=== PATIENT | female | born 1950 | race American Indian/Alaskan Native ===

== ENCOUNTER 2017-01-20 12:30 | Outpatient (CLI) | payer MEDICARE, MEDICAID ==
--- NOTE | 2017-01-20 15:15 | Mammography Report ---
Bilateral mammogram: Compared to . CAD study utilized. Findings: Predominance of adipose tissue bilaterally. No mass or microcalcification. Benign axillary nodes. Focal 4 mm new asymmetry upper left breast. Impression: Focal ill-defined circumscribed new asymmetry upper anterior left breast. Recommend spot mag and sonographic examination. BI-RADS CATEGORY: 0 = Needs additional imaging evaluation ACR BI-RADS MAMMOGRAPHIC CODES: 0 = Needs additional imaging evaluation; 1 = Negative; 2 = Benign; 3 = Probably benign; 4 = Suspicious; 5 = Malignant; 6 = Known biopsy-proven malignancy COMMENT: 1. Dense breast tissue, i.e., adenosis, fibrocystic changes, etc., may obscure an underlying neoplasm. 2. Approximately 10% of cancers are not detected with mammography. 3. A negative mammography report should not delay biopsy if a clinically suspicious mass is present. COMMENT: [facility]
--- NOTE | 2017-01-21 08:07 | Mammography Report ---
BONE DENSITY STUDY: DEFINITIONS: BMD = Bone Mineral Density T-score = BMD related to mean peak bone mass of young adult (mean expressed in Standard Deviation) Z-score = Age matched BMD expressed in SD World Health Organization (WHO) Diagnostic Criteria Normal T-score > -1 SD Osteopenia T-score between -1 and -2.4 SD Osteoporosis T-score -2.5 SD or below FINDINGS: The weighted average BMD of lumbar spine L1-L4 is 1.074 with a T-score of 0.5. The weighted average BMD of hip is 1.036 with a T-score of 0.8. IMPRESSION: The patient's T-score is diagnostic for normal bone density and low relative risk for fracture. NOTE: BMD is not the only risk factor for fracture; also consider factors such as the patient's age, risk of falling, previous osteoporotic fracture, family history of osteoporotic fractures, current smoker, and low body weight. De La Garza's triangle is a region of interest in femur, predominantly of trabecular bone. It is not a true anatomic site, and ISCD does not recommend its use clinically.
== END 2017-01-20 12:31 | disposition home or self-care (01) ==
LOC: MAMMO 12:30
PROVIDERS: ATTEND Specialist
DX: Z12.31 Encounter for screening mammogram for malignant neoplasm of breast (principal); Z13.820 Encounter for screening for osteoporosis; E21.2 Other hyperparathyroidism
CPT/HCPCS: 77080; G0202; 77067

== ENCOUNTER 2017-02-13 08:17 | Outpatient (CLI) | payer MEDICARE ==
--- NOTE | 2017-02-13 09:36 | Mammography Report ---
Left mammogram and left breast ultrasound: Additional compression imaging of the breast in the lateral view is performed based on asymmetry seen only in one projection on recent screening exam. It is of note that the patient had prior injury with surgery in this location as a child. The additional compression images are not substantially different than the standard imaging seen on prior study in 2015. Ultrasound of the upper outer breast however was performed also demonstrating essentially unremarkable findings except for a 3 mm anechoic teardrop-shaped area surrounded by an echogenic rim in the 12:00 location. Impression: The mammographic and ultrasound findings are not suspicious for malignancy and most likely explained by prior wrist injury. Recommendation: Annual mammogram followup. BI-RADS CATEGORY: 2 = Benign ACR BI-RADS MAMMOGRAPHIC CODES: 0 = Needs additional imaging evaluation; 1 = Negative; 2 = Benign; 3 = Probably benign; 4 = Suspicious; 5 = Malignant; 6 = Known biopsy-proven malignancy COMMENT: 1. Dense breast tissue, i.e., adenosis, fibrocystic changes, etc., may obscure an underlying neoplasm. 2. Approximately 10% of cancers are not detected with mammography. 3. A negative mammography report should not delay biopsy if a clinically suspicious mass is present.
== END 2017-02-13 08:18 | disposition home or self-care (01) ==
LOC: MAMMO 08:17
PROVIDERS: ATTEND Physician Assistant Medical
DX: R92.8 Other abnormal and inconclusive findings on diagnostic imaging of breast (principal); I10 Essential (primary) hypertension; J44.9 Chronic obstructive pulmonary disease, unspecified
CPT/HCPCS: 76642; G0206

== ENCOUNTER 2017-06-02 07:40 | Day surgery (SDC) | payer MEDICARE ==
[2017-06-02] MEDS ORDERED: NACL 0.9% 1000 ML 1,000 ML ONE (08:27)
[2017-06-02] MEDS ORDERED: NACL 0.9% 1000 ML 1,000 ML IV SCH (09:00)
--- NOTE | 2017-06-02 09:17 | Anesthesia Consultation ---
Anesthesia Consult and Med Hx Date of service: 06/02/17 - Airway Anesthetic Teeth Evaluation: Good ROM Head & Neck: Adequate Mental/Hyoid Distance: Adequate Mallampati Class: Class II Intubation Access Assessment: Probably Good - Pulmonary Exam CTA: Yes - Cardiac Exam Cardiac Exam: RRR - Pre-Operative Health Status ASA Pre-Surgery Classification: ASA3 Proposed Anesthetic Plan: MAC - Pre-Anesthesia Comment Pre-Anesthesia Comments: Pt stated she was being resusitated during gallbladder surgery - Pulmonary Hx Smoking: No COPD: Yes (MILD) Hx Sleep Apnea: (HIGH RISK) - Cardiovascular System Hx Hypertension: Yes Hx Heart Attack/AMI: No - Central Nervous System Hx Neuromuscular Disorder: Yes (castanon palsy in ) Hx Seizures: No CVA: No Hx Psychiatric Problems: Yes (anxiety) - Gastrointestinal Hx Ulcer: Yes (peptic 5yrs ago) Hx Gastroesophageal Reflux Disease: Yes - Endocrine Hx Renal Disease: No (kidney function better after switching to a diff BP med) Hx Hypothyroidism: Yes (hypo and hyper) Hx Hyperthyroidism: Yes - Hematic Hx Anemia: No (RESOLVED) - Other Systems Hx Cancer: No - Additional Comments Anesthesia Medical History Comments: NAC
--- NOTE | 2017-06-02 09:18 | Anesthesia Day of Surgery ---
Anesthesia Day of Surgery - Day of Surgery Patient Examined: Yes Patient H&P Reviewed: Yes Patient is NPO: Yes
[2017-06-02] MEDS ORDERED: DIPRIVAN 10 MG/ML IV ONE (09:22)
--- NOTE | 2017-06-02 09:22 | Short Stay Summary ---
Short Stay Documentation Date of service: 06/02/17 Narrative H&P: 66 year old for EGD to evaluate nausea/vomiting. History peptic ulcer. - History Principal diagnosis: nausea, vomiting H&P: obtained from office - Allergies and Medications Current Medications: Allergies No Known Allergies Allergy (Verified 01/13/15 08:30) Home Medications Medication Instructions Recorded Confirmed Last Taken Type Famotidine [Pepcid] 20 mg PO DAILY #30 tablet 06/05/14 06/02/17 06/01/17 21:00 Rx cloNIDine [Catapres] 0.2 mg PO QHS #30 tablet 06/05/14 06/02/17 06/01/17 21:00 Rx Promethazine [Phenergan TAB] 25 mg PO Q6H PRN #20 tablet 08/05/14 04/29/1506/01 09:00 Rx Hydrochlorothiazide [HCTZ] 25 mg PO QDAY 04/06/15 06/02/17 04/28/15 History Lisinopril [Zestril TAB] 40 mg PO QDAY 04/06/15 04/29/15 04/28/15 History ALBUTEROL Inhaler [ProAir HFA 2 puff IH QID PRN #1 inhalation 04/29/15 06/02/17 Unknown Rx Inhaler] Prednisone [predniSONE 5 mg (6-Day 5 mg PO .TAPER #1 tab.ds.pk 04/29/15 Unknown Rx Pack, 21 Tabs)] oxyCODONE /ACETAMINOPHEN [Percocet 1 tab PO Q6HR PRN #10 tablet 04/29/1506/01/17 21:00 Rx 5/325 mg] Baclofen 1 tab PO 05/30/17 Unknown History DULoxetine 1 cap PO BID 05/30/17 06/02/17 06/01/17 21:00 History Dicyclomine 1 tab PO BID 05/30/17 06/02/17 06/01/17 21:00 History Duexis 800-26.6 mg Tablet 05/30/17 Unknown History Gabapentin 1 tab PO BID 05/30/17 06/02/17 06/01/17 History Levothyroxine 1 tab PO DAILY 05/30/17 06/02/17 06/02/17 06:00 History Nortriptyline 1 cap PO 05/30/17 06/01/17 21:00 History Ondansetron 1 tab PO DAILY 05/30/17 06/02/17 06/01/17 21:00 History Simvastatin 1 tab PO 05/30/17 Unknown History Simvastatin 1 tab PO DAILY 05/30/17 06/02/17 06/01/17 21:00 History amLODIPine 1 tab PO DAILY 05/30/17 06/02/17 06/02/17 06:00 History metFORMIN 1 tab PO BID 05/30/17 06/02/17 06/01/17 21:00 History Cyclobenzaprine HCl [Flexeril 5 MG 5 mg PO BID PRN 06/02/17 06/02/17 06/01/17 21 :00 History TAB] Active Medications Sodium Chloride (Nacl 0.9% 1000 Ml) 1,000 mls @ 50 mls/hr IV 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 Follow up with: STEVEN LIU MD [Primary Care Provider] - 7 Days
[2017-06-02] MEDS ORDERED: WATER FOR IRRIG STERILE IR ONE (10:04)
--- NOTE | 2017-06-02 10:18 | Operative Report ---
Operative Report Operative Report: Date of procedure: 04/02/2017 Preprocedure diagnosis: Nausea and vomiting, gastroesophageal reflux disease Post procedure diagnosis: Mild gastritis, hiatal hernia Procedure name(s): Esophagogastroduodenoscopy with biopsy Surgeon: Eduardo Lamas MD Anesthesia: Monitored anesthesia care EBL: None Procedure: The indications, techniques, potential complications and alternatives , had been discussed in full detail prior to the date of the exam, and once again on the day of the exam. Questions were encouraged and answered, and consent was thereby obtained. The patient was placed in the left lateral decubitus position, and was medicated by anesthesia services. See the anesthesia records for details. The tip of a [employer] video panendoscope was passed without difficulty through the pharynx and into the esophagus which appeared to have a patulous EG junction , but otherwise appeared normal throughout its entire length. A 1.5-2 cm hiatal hernia was traversed as the instrument was advanced into the stomach. No Wolf lesions were noted. Once in the stomach, air was insufflated. The stomach distended well, gastric folds were normal in thickness and contour, the pylorus was patent and there was no retained content. There was streaky erythema with one or 2 erosions involving the distal body and antrum. No patricia ulceration. No pathology was seen in the duodenal bulb or in the post bulbar duodenum to below the level of the ampulla. Retroflexion in the stomach disclosed no additional pathology involving the lesser gastric curvature, fundus or cardia. Antral biopsies were obtained for rapid Helicobacter pylori testing. No bleeding was precipitated. The endoscope was then withdrawn, with repeat examination of the stomach, esophagogastric junction and esophagus. There were no additional findings. The procedure was very well tolerated. Postprocedure she was monitored in the recovery area of the GI lab to ensure stability prior to her release. See the outpatient record for details regarding instructions to patient, medications and plans for follow-up. Final diagnosis: 1. Mild, nonerosive antral gastritis 2. Hiatal hernia 3. Patulous esophagogastric junction Eduardo Lamas M.D. Dictated 06/02/2017 at 10:16 AM
[2017-06-02 10:42] VITALS: BP 119/73
--- NOTE | 2017-06-02 11:02 | Post Anesthesia Evaluation ---
- Post Anesthesia Evaluation Patient Participated: Yes Airway Patent: Yes Stable Respiratory Function: Yes Nausea/Vomiting: No Temp > 96.8F: Yes Pain Manageable: Yes Adequeate Hydration: Yes Anesthesia Complications: No Block Receding Appropriately: Not Applicable Patient on Ventilator: No
== END 2017-06-02 07:41 | disposition home or self-care (01) ==
LOC: GIO 07:40
PROVIDERS: ATTEND Internal Medicine Gastroenterology
DX: K29.50 Unspecified chronic gastritis without bleeding (principal); K44.9 Diaphragmatic hernia without obstruction or gangrene; K21.9 Gastro-esophageal reflux disease without esophagitis; J44.9 Chronic obstructive pulmonary disease, unspecified; I10 Essential (primary) hypertension; F41.9 Anxiety disorder, unspecified; E03.9 Hypothyroidism, unspecified; E05.90 Thyrotoxicosis, unspecified without thyrotoxic crisis or storm; Z87.11 Personal history of peptic ulcer disease
CPT/HCPCS: 43239; 82962; 86677; J2704; J7030

== ENCOUNTER 2017-10-10 23:40 | Emergency (ER) | payer MEDICARE ==
[2017-10-11 00:30] LABS: Basophils % (Auto) 0.3 % (0.0-1.8); Eosinophils % (Auto) 0.3 % (0.0-4.3); Hematocrit 41.2 % (30.3-42.9); Hemoglobin 13.6 gm/dl (10.1-14.3); Lymphocytes # (Auto) 0.4 K/mm3 (1.2-5.4); Lymphocytes % (Auto) 9.2 % (13.4-35.0); Mean Corpuscular HGB Conc 33 % (30-34); Mean Corpuscular Hemoglobin 29 pg (28-32); Mean Corpuscular Volume 87 fl (79-97); Monocytes # (Auto) 0.1 K/mm3 (0.0-0.8); Monocytes % (Auto) 1.3 % (0.0-7.3); Platelet Count 219 K/mm3 (140-440); Red Blood Count 4.72 M/mm3 (3.65-5.03); Red Cell Distribution Width 14.3 % (13.2-15.2)
[2017-10-11 00:42] LABS: BUN/Creatinine Ratio 22; Blood Urea Nitrogen 22 mg/dL (7-17); Calcium 11.2 mg/dL (8.4-10.2); Hemolysis Index 97
[2017-10-11] MEDS ORDERED: TORADOL IM ONE (01:12)
[2017-10-11] MEDS ORDERED: ZOFRAN ODT PO ONE (01:12)
[2017-10-11] MEDS ORDERED: PERCOCET 5/325 PO ONE (01:12)
--- NOTE | 2017-10-11 02:02 | Cat Scan Report ---
FINAL REPORT PROCEDURE: CT HEAD/BRAIN WO CON TECHNIQUE: Computerized tomography of the head was performed without contrast material. HISTORY: headache COMPARISON: No prior studies are available for comparison. FINDINGS: Skull and scalp: There is right frontal scalp swelling. There is no skull fracture.. Paranasal sinuses: Normal. Ventricles and subarachnoid spaces: Normal. Cerebrum: There is a rounded density in the left temporal lobe medially measuring 1 centimeter which could be a small hemorrhagic contusion. There is no epidural or subdural hematoma. There is no edema, mass effect or midline shift.. Cerebellum and brainstem: No evidence of hemorrhage, acute infarction or mass. Vasculature: Normal. Comments: None. IMPRESSION: There is right frontal scalp swelling. There is no skull fracture.. There is a rounded density in the left temporal lobe medially measuring 1 centimeter which could be a small hemorrhagic contusion. There is no epidural or subdural hematoma. There is no edema, mass effect or midline shift.. Dr. Worthington was notified by telephone at 12:57 a.m. central time.
--- NOTE | 2017-10-11 02:05 | Emergency Department Report ---
ED Head Trauma HPI - General Chief complaint: Head Injury Stated complaint: HEAD INJURY Time Seen by Provider: 10/11/17 00:55 Source: patient Mode of arrival: Ambulatory Limitations: No Limitations - History of Present Illness Initial comments: 67-year-old female with a past medical history COPD, diabetes, arthritis, hypertension, thyroid disease, and fibromyalgia presents to hospital complaining of headache status post fall with LOC. Patient was playing with her boyfriend and fell striking her right forehead against a wooden table. Positive syncope. Patient complains of a 10/10 right frontal headache radiating across her forehead. Pain is constant. Forehead tender to touch. No alleviating factors reported. Patient complains of nausea without vomiting, blurred vision, neck pain, focal weakness, or numbness. Patient denies taking blood tenderness including aspirin or Plavix. - Related Data Home Medications Medication Instructions Recorded Confirmed Last Taken Hydrochlorothiazide [HCTZ] 25 mg PO QDAY 04/06/15 06/02/17 04/28/15 Baclofen 1 tab PO BID 05/30/17 06/02/17 06/01/17 21:00 DULoxetine 1 cap PO BID 05/30/17 06/02/17 06/01/17 21:00 Dicyclomine 1 tab PO BID 05/30/17 06/02/17 06/01/17 21:00 Gabapentin 1 tab PO BID 05/30/17 06/02/17 06/01/17 21:00 Levothyroxine 1 tab PO DAILY 05/30/17 06/02/17 06/02/17 06:00 Ondansetron 1 tab PO DAILY 05/30/17 06/02/17 06/01/17 21:00 Simvastatin 1 tab PO DAILY 05/30/17 06/02/17 06/01/17 21:00 amLODIPine 1 tab PO DAILY 05/30/17 06/02/17 06/02/17 06:00 metFORMIN 1 tab PO BID 05/30/17 06/02/17 06/01/17 21:00 Cyclobenzaprine HCl [Flexeril 5 MG 5 mg PO BID PRN 06/02/17 06/02/17 06/01/17 21 :00 TAB] Metoprolol [Lopressor TAB] 50 mg PO DAILY 06/02/17 06/02/17 06/02/17 06:00 Previous Rx's Medication Instructions Recorded Last Taken Type Famotidine [Pepcid] 20 mg PO DAILY #30 tablet 06/05/14 06/01/17 21:00 Rx cloNIDine [Catapres] 0.2 mg PO QHS #30 tablet 06/05/14 06/01/17 21:00 Rx Promethazine [Phenergan TAB] 25 mg PO Q6H PRN #20 tablet 08/05/14 06/01/17 09: 00 Rx ALBUTEROL Inhaler [ProAir HFA 2 puff IH QID PRN #1 inhalation 04/29/15 Unknown Rx Inhaler] oxyCODONE /ACETAMINOPHEN [Percocet 1 tab PO Q6HR PRN #10 tablet 04/29/15 21:00 Rx 5/325 mg] Allergies/Adverse reactions: Allergies Allergy/AdvReac Type Severity Reaction Status Date / Time No Known Allergies Allergy Verified 01/13/15 08:30 ED Review of Systems ROS: Stated complaint: HEAD INJURY Other details as noted in HPI Comment: All other systems reviewed and negative Other: Constitutional: No fevers chills Eyes: No eye pain visual changes ENT: No ear pain or throat pain Neck: Denies pain Respiratory: Denies cough wheezing shortness of breath Cardiovascular: Denies chest pain, palpitations, syncope GI: Denies abdominal pain, nausea, vomiting, diarrhea : Denies dysuria Musculoskeletal: Denies back pain Skin: Denies rash, lesions, erythema Neurologic: As per HPI Psychiatric: Denies suicidal ideation, hallucinations ED Past Medical Hx - Past Medical History Hx Hypertension: Yes Hx Heart Attack/AMI: No Hx Diabetes: Yes Hx Renal Disease: No (kidney function better after switching to a diff BP med) Hx Arthritis: Yes Hx Seizures: No Hx Kidney Stones: Yes Hx COPD: Yes (MILD) Additional medical history: emphysema, ovarian and hepatic cysts. THYROID, fibromyalgia - Surgical History Hx Cholecystectomy: Yes Additional Surgical History: Kidney stone surgery, hysterectomy, injections in back - Social History Smoking Status: Never Smoker Substance Use Type: None - Medications Home Medications: Home Medications Medication Instructions Recorded Confirmed Last Taken Type Famotidine [Pepcid] 20 mg PO DAILY #30 tablet 06/05/14 06/02/17 06/01/17 21:00 Rx cloNIDine [Catapres] 0.2 mg PO QHS #30 tablet 06/05/14 06/02/17 06/01/17 21:00 Rx Promethazine [Phenergan TAB] 25 mg PO Q6H PRN #20 tablet 08/05/14 06/02/1706/01 09:00 Rx Hydrochlorothiazide [HCTZ] 25 mg PO QDAY 04/06/15 06/02/17 04/28/15 History ALBUTEROL Inhaler [ProAir HFA 2 puff IH QID PRN #1 inhalation 04/29/15 06/02/17 Unknown Rx Inhaler] oxyCODONE /ACETAMINOPHEN [Percocet 1 tab PO Q6HR PRN #10 tablet 04/29/1506/01/17 21:00 Rx 5/325 mg] Baclofen 1 tab PO BID 05/30/17 06/02/17 06/01/17 21:00 History DULoxetine 1 cap PO BID 05/30/17 06/02/17 06/01/17 21:00 History Dicyclomine 1 tab PO BID 05/30/17 06/02/17 06/01/17 21:00 History Gabapentin 1 tab PO BID 05/30/17 06/02/17 06/01/17 21:00 History Levothyroxine 1 tab PO DAILY 05/30/17 06/02/17 06/02/17 06:00 History Ondansetron 1 tab PO DAILY 05/30/17 06/02/17 06/01/17 21:00 History Simvastatin 1 tab PO DAILY 05/30/17 06/02/17 06/01/17 21:00 History amLODIPine 1 tab PO DAILY 05/30/17 06/02/17 06/02/17 06:00 History metFORMIN 1 tab PO BID 05/30/17 06/02/17 06/01/17 21:00 History Cyclobenzaprine HCl [Flexeril 5 MG 5 mg PO BID PRN 06/02/17 06/02/17 06/01/17 21 :00 History TAB] Metoprolol [Lopressor TAB] 50 mg PO DAILY 06/02/17 06/02/17 06/02/17 06:00 History ED Physical Exam - General Limitations: No Limitations - Other Other exam information: General: No limitations, patient is alert in no acute distress Head exam: Atraumatic, normocephalic Eyes exam: Normal appearance, pupils equal reactive to light, extraocular movements intact ENT: Moist mucous membrane, normal oropharynx Neck exam: Normal inspection, full range of motion, no meningismus nontender Respiratory exam: Clear to auscultation bilateral, no wheezes, rales, crackles Cardiovascular: Normal rate and rhythm Abdomen: Soft, nondistended, and nontender, with normal bowel sounds, no rebound, or guarding Extremity: Full range of motion normal inspection no deformity Back: Normal Inspection, full range of motion, no tenderness Neurologic: Alert, oriented x3, cranial nerves intact, no motor or sensory deficit. GCS equals 15 Psychiatric: normal affect, normal mood Skin: Warm, dry, intact ED Course Vital Signs 10/11/17 10/11/17 10/11/17 00:04 00:56 01:00 Temperature 98.7 F Pulse Rate 107 H Respiratory 20 18 Rate Blood Pressure 128/76 145/88 O2 Sat by Pulse 96 96 Oximetry 10/11/17 10/11/17 10/11/17 01:16 01:30 01:46 Temperature Pulse Rate Respiratory Rate Blood Pressure 145/88 122/84 145/88 O2 Sat by Pulse 95 94 95 Oximetry 10/11/17 10/11/17 10/11/17 02:00 02:30 03:00 Temperature Pulse Rate 81 Respiratory 13 Rate Blood Pressure 133/83 139/91 130/83 O2 Sat by Pulse 92 100 Oximetry 10/11/17 10/11/17 03:30 04:00 Temperature Pulse Rate 84 80 Respiratory 17 14 Rate Blood Pressure 136/85 126/78 O2 Sat by Pulse 96 Oximetry - Consultations Consultation #1: 10/11/17 02:23 Patient accepted by [facility] attending Dr. Rubio for transfer - Lab Data Result diagrams: 10/11/17 00:19 10/11/17 00:19 Lab Results 10/11/17 10/11/17 10/11/17 Range/Units 00:19 00:19 02:34 WBC 4.7 (4.5-11.0) K/mm3 RBC 4.72 (3.65-5.03) M/mm3 Hgb 13.6 (10.1-14.3) gm/dl Hct 41.2 (30.3-42.9) % MCV 87 (79-97) fl MCH 29 (28-32) pg MCHC 33 (30-34) % RDW 14.3 (13.2-15.2) % Plt Count 219 (140-440) K/mm3 Lymph % (Auto) 9.2 L (13.4-35.0) % [place] % (Auto) 1.3 (0.0-7.3) % Eos % (Auto) 0.3 (0.0-4.3) % Baso % (Auto) 0.3 (0.0-1.8) % Lymph # 0.4 L (1.2-5.4) K/mm3 [place] # 0.1 (0.0-0.8) K/mm3 Eos # 0.0 (0.0-0.4) K/mm3 Baso # 0.0 (0.0-0.1) K/mm3 Seg Neutrophils % 88.9 H (40.0-70.0) % Seg Neutrophils # 4.2 (1.8-7.7) K/mm3 PT 12.5 (12.2-14.9) Sec. INR 0.89 (0.87-1.13) APTT 27.8 (24.2-36.6) Sec. Sodium 142 (137-145) mmol/L Potassium 4.5 (3.6-5.0) mmol/L Chloride 99.8 (98-107) mmol/L Carbon Dioxide 23 (22-30) mmol/L Anion Gap 24 mmol/L BUN 22 H (7-17) mg/dL Creatinine 1.0 (0.7-1.2) mg/dL Estimated GFR > 60 ml/min BUN/Creatinine Ratio 22 % Glucose 170 H (65-100) mg/dL Calcium 11.2 H (8.4-10.2) mg/dL - Radiology Data Radiology results: report reviewed Read by radiologist CT head noncontrast: right frontal scalp swelling. No skull fracture. Round density in the left temporal lobe medially measuring 1 cm which could be a small hemorrhagic contusion. No edema, shift, or mass effect. - Medical Decision Making Patient received Toradol IM and Percocet by mouth for pain while awaiting CT result CT revealed a hemorrhagic contusion Patient will be transferred to [facility]. coags within normal limits - Differential Diagnosis ICH, contusion, sprain Critical Care Time: No Critical care attestation.: If time is entered above; I have spent that time in minutes in the direct care of this critically ill patient, excluding procedure time. ED Disposition Clinical Impression: Contusion of left temporal lobe, Head injury, closed, with LOC of unknown duration Disposition: DC/TX-70 ANOTHER TYPE HLTHCARE Is pt being admited?: No Condition: Stable Time of Disposition: 02:25 (accepted by DR Rubio transfer to [facility])
[2017-10-11] MEDS ORDERED: ZOFRAN IV ONE (02:28)
[2017-10-11 03:02] LABS: INR 0.89 (0.87-1.13)
[2017-10-11 03:03] LABS: Partial Thromboplastin Time 27.8 Sec. (24.2-36.6)
[2017-10-11 04:11] VITALS: BP 126/78
[2017-10-11] MEDS ORDERED: MORPHINE IV ONE (04:12)
== END 2017-10-11 04:31 | disposition other institution (70) ==
LOC: ED 23:40
DX: S00.83XA Contusion of other part of head, initial encounter (principal); I10 Essential (primary) hypertension; E11.9 Type 2 diabetes mellitus without complications; M19.90 Unspecified osteoarthritis, unspecified site; J43.9 Emphysema, unspecified; Z90.710 Acquired absence of both cervix and uterus; W22.8XXA Striking against or struck by other objects, initial encounter; Y93.89 Activity, other specified; Y92.89 Other specified places as the place of occurrence of the external cause; Y99.8 Other external cause status
CPT/HCPCS: 36415; 70450; 80048; 85025; 85610; 85730; 96372; 96374; 96375; 99284; J1885; J2270; J2405; Q0162

== ENCOUNTER 2017-10-25 15:09 | Emergency (ER) | payer MEDICARE ==
[2017-10-25 15:20] VITALS: BP 144/80
[2017-10-25] MEDS ORDERED: TYLENOL PO ONE (15:47)
[2017-10-25] MEDS ORDERED: TORADOL IM ONE (15:47)
--- NOTE | 2017-10-25 15:49 | Emergency Department Report ---
ED Lower Extremity HPI - General Chief Complaint: Pain General Stated Complaint: GOUT/LEFT FOOT PAIN Time Seen by Provider: 10/25/17 15:47 Source: patient, RN notes reviewed Mode of arrival: Ambulatory Limitations: No Limitations - History of Present Illness Initial Comments: This is a 59-year-old female. The patient presents to the ER with a complaint of nontraumatic left sided heel pain. The pain is sharp, increases with palpation and decreases with rest. It's been going on for a day or so. There is no toe pain, there is no joint pain. Patient denies fever, chills, chest pain, shortness of breath, abdominal pain, tingling, numbness, weakness. She denies dietary indiscretions. She is concerned that she might be having a gouty flare. MD Complaint: other -: Gradual Injury: Foot: Left Type of Injury: unknown Place: home Severity: moderate Improves With: rest Worsens With: weight bearing, movement, palpation Associated Symptoms: able to partially bear weight, ambulatory, other (patient also complains of nontraumatic chronic left-sided knee pain. Pain does not radiate anywhere.). denies: snap/pop sensation, swelling, numbness, tingling - Related Data Home Medications Medication Instructions Recorded Confirmed Last Taken Hydrochlorothiazide [HCTZ] 25 mg PO QDAY 04/06/15 06/02/17 04/28/15 Baclofen 1 tab PO BID 05/30/17 06/02/17 06/01/17 21:00 DULoxetine 1 cap PO BID 05/30/17 06/02/17 06/01/17 21:00 Dicyclomine 1 tab PO BID 05/30/17 06/02/17 06/01/17 21:00 Gabapentin 1 tab PO BID 05/30/17 06/02/17 06/01/17 21:00 Levothyroxine 1 tab PO DAILY 05/30/17 06/02/17 06/02/17 06:00 Ondansetron 1 tab PO DAILY 05/30/17 06/02/17 06/01/17 21:00 Simvastatin 1 tab PO DAILY 05/30/17 06/02/17 06/01/17 21:00 amLODIPine 1 tab PO DAILY 05/30/17 06/02/17 06/02/17 06:00 metFORMIN 1 tab PO BID 05/30/17 06/02/17 06/01/17 21:00 Cyclobenzaprine HCl [Flexeril 5 MG 5 mg PO BID PRN 06/02/17 06/02/17 06/01/17 21 :00 TAB] Metoprolol [Lopressor TAB] 50 mg PO DAILY 06/02/17 06/02/17 06/02/17 06:00 Previous Rx's Medication Instructions Recorded Last Taken Type Famotidine [Pepcid] 20 mg PO DAILY #30 tablet 06/05/14 06/01/17 21:00 Rx cloNIDine [Catapres] 0.2 mg PO QHS #30 tablet 06/05/14 06/01/17 21:00 Rx Promethazine [Phenergan TAB] 25 mg PO Q6H PRN #20 tablet 08/05/14 06/01/17 09: 00 Rx ALBUTEROL Inhaler [ProAir HFA 2 puff IH QID PRN #1 inhalation 04/29/15 Unknown Rx Inhaler] oxyCODONE /ACETAMINOPHEN [Percocet 1 tab PO Q6HR PRN #10 tablet 04/29/15 21:00 Rx 5/325 mg] Acetaminophen [Tylenol Arthritis] 650 mg PO Q6HR PRN #30 tablet.er 10/25/17 Unknown Rx Ibuprofen [Motrin] 600 mg PO Q8H PRN #30 tablet 10/25/17 Unknown Rx Allergies Allergy/AdvReac Type Severity Reaction Status Date / Time No Known Allergies Allergy Verified 01/13/15 08:30 ED Review of Systems ROS: Stated complaint: GOUT/LEFT FOOT PAIN Other details as noted in HPI Comment: All other systems reviewed and negative ED Past Medical Hx - Past Medical History Hx Hypertension: Yes Hx Heart Attack/AMI: No Hx Diabetes: Yes Hx Renal Disease: No (kidney function better after switching to a diff BP med) Hx Arthritis: Yes Hx Seizures: No Hx Kidney Stones: Yes Hx COPD: Yes (MILD) Additional medical history: emphysema, ovarian and hepatic cysts. THYROID, fibromyalgia - Surgical History Hx Cholecystectomy: Yes Additional Surgical History: Kidney stone surgery, hysterectomy, injections in back - Social History Smoking Status: Never Smoker - Medications Home Medications: Home Medications Medication Instructions Recorded Confirmed Last Taken Type Famotidine [Pepcid] 20 mg PO DAILY #30 tablet 06/05/14 06/02/1717 21:00 Rx cloNIDine [Catapres] 0.2 mg PO QHS #30 tablet 06/05/14 06/02/17 06/01/17 21:00 Rx Promethazine [Phenergan TAB] 25 mg PO Q6H PRN #20 tablet 08/05/14 06/02/1706/01 09:00 Rx Hydrochlorothiazide [HCTZ] 25 mg PO QDAY 04/06/15 06/02/17 04/28/15 History ALBUTEROL Inhaler [ProAir HFA 2 puff IH QID PRN #1 inhalation 04/29/15 06/02/17 Unknown Rx Inhaler] oxyCODONE /ACETAMINOPHEN [Percocet 1 tab PO Q6HR PRN #10 tablet 04/29/1506/01/17 21:00 Rx 5/325 mg] Baclofen 1 tab PO BID 05/30/17 06/02/17 06/01/17 21:00 History DULoxetine 1 cap PO BID 05/30/17 06/02/17 06/01/17 21:00 History Dicyclomine 1 tab PO BID 05/30/17 06/02/17 06/01/17 21:00 History Gabapentin 1 tab PO BID 05/30/17 06/02/17 06/01/17 21:00 History Levothyroxine 1 tab PO DAILY 05/30/17 06/02/17 06/02/17 06:00 History Ondansetron 1 tab PO DAILY 05/30/17 06/02/17 06/01/17 21:00 History Simvastatin 1 tab PO DAILY 05/30/17 06/02/17 06/01/17 21:00 History amLODIPine 1 tab PO DAILY 05/30/17 06/02/17 06/02/17 06:00 History metFORMIN 1 tab PO BID 05/30/17 06/02/17 06/01/17 21:00 History Cyclobenzaprine HCl [Flexeril 5 MG 5 mg PO BID PRN 06/02/17 06/02/17 06/01/17 21 :00 History TAB] Metoprolol [Lopressor TAB] 50 mg PO DAILY 06/02/17 06/02/17 06/02/17 06:00 History Acetaminophen [Tylenol Arthritis] 650 mg PO Q6HR PRN #30 tablet.er 10/25/17 Unknown Rx Ibuprofen [Motrin] 600 mg PO Q8H PRN #30 tablet 10/25/17 Unknown Rx ED Physical Exam - General Limitations: No Limitations General appearance: alert, in distress - Head Head exam: Present: atraumatic, normocephalic - Eye Eye exam: Present: normal appearance, EOMI. Absent: nystagmus - ENT ENT exam: Present: normal exam, normal orophraynx, mucous membranes moist, normal external ear exam - Neck Neck exam: Present: normal inspection, full ROM - Respiratory Respiratory exam: Present: normal lung sounds bilaterally. Absent: respiratory distress - Cardiovascular Cardiovascular Exam: Present: regular rate, normal rhythm, normal heart sounds. Absent: systolic murmur, diastolic murmur, rubs, gallop - GI/Abdominal GI/Abdominal exam: Present: soft, normal bowel sounds. Absent: distended, tenderness, guarding, rebound, rigid, pulsatile mass - Extremities Exam Extremities exam: Present: normal inspection, full ROM, tenderness (there is reproducible left-sided medial calcaneal and plantar fascia tenderness. There is no redness, pus or streaking. The compartments are soft. 2+ pulses noted in the bilateral upper and lower extremities.), normal capillary refill, other ( full range of motion to the bilateral knees. The pelvis is stable. There is no great toe tenderness.). Absent: pedal edema, joint swelling, calf tenderness - Back Exam Back exam: Present: normal inspection, full ROM. Absent: tenderness, CVA tenderness (R), paraspinal tenderness, vertebral tenderness - Neurological Exam Neurological exam: Present: alert, oriented X3, CN II-XII intact, normal gait, other (Extraocular movements intact. Tongue midline. No facial droop. Facial sensation intact to light touch in the V1, V2, V3 distribution bilaterally. 5 and 5 strength in 4 extremities.. Sensation is intact to light touch in 4 extremities.). Absent: motor sensory deficit - Psychiatric Psychiatric exam: Present: normal affect, normal mood - Skin Skin exam: Present: warm, dry, intact, normal color. Absent: rash ED Course Vital Signs 10/25/17 10/25/17 15:16 16:01 Temperature 98.4 F Pulse Rate 82 Respiratory 18 Rate Blood Pressure 144/80 ED Lower Extremity MDM - Lab Data Vital Signs 10/25/17 10/25/17 15:16 16:01 Temperature 98.4 F Pulse Rate 82 Respiratory 18 Rate Blood Pressure 144/80 - Radiology Data Radiology results: image reviewed interpreted by me: X-ray of the left knee: No fracture, no dislocation DJD is noted. X-ray of the left foot demonstrates no fracture or dislocation, soft tissue swelling is noted. - Medical Decision Making Differential diagnosis, including but not limited to: Fracture, dislocation, sprain, strain, plantar fasciitis, calcaneal stress fracture Assessment and plan: 67-year-old female with likely left-sided plantar fasciitis. Distribution, history and physical did not support the diagnosis of gout or crystal arthritis. She has no clinical indication of compartment syndrome, cellulitis, x-rays negative for fracture, dislocation. Located appropriately, she is given instructions that she'll need to follow up with outpatient podiatry, and care and home management for pain control of present plantar fasciitis or reviewed with patient. Critical care attestation.: If time is entered above; I have spent that time in minutes in the direct care of this critically ill patient, excluding procedure time. ED Disposition Clinical Impression: Left foot pain Disposition: DC-01 TO HOME OR SELFCARE Is pt being admited?: No Does the pt Need Aspirin: No Condition: Stable Instructions: Arthralgia (ED) Additional Instructions: Rest, and avoid heavy lifting. Avoid strenuous physical activity. Follow-up with a printer assistant within the next week. Return to the ER right away with new pain, worsened pain, migration of pain, weakness, numbness, redness, pus, streaking, inability to tolerate liquid feeds, confusion Referrals: SAMMIE TARIQ DPM [Staff Physician] - 3-5 Days
--- NOTE | 2017-10-25 17:25 | XRay Report ---
FINAL REPORT EXAM: XR FOOT 2V LT HISTORY: left heel pain TECHNIQUE: 3 views Left foot PRIORS: None. FINDINGS: No fracture or dislocation identified. Joint spaces are within normal limits. No erosive bony change identified. There is a plantar calcaneal enthesophyte noted with calcification along the course of the plantar fascia IMPRESSION: Heel spur. Calcification along the course of the plantar fascia.
--- NOTE | 2017-10-25 17:32 | XRay Report ---
FINAL REPORT EXAM: XR KNEE 1-2V LT HISTORY: left knee pain TECHNIQUE: Left knee three views PRIORS: None. FINDINGS: There is medial lateral meniscal calcification along with chondrocalcinosis. No evidence for joint effusion no acute fracture identified. No significant joint space narrowing or hypertrophic bony change. Patella demonstrates normal position IMPRESSION: Chondrocalcinosis and meniscal calcification. 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
== END 2017-10-25 16:41 | disposition home or self-care (01) ==
LOC: ED 15:09
DX: M25.572 Pain in left ankle and joints of left foot (principal); E11.9 Type 2 diabetes mellitus without complications
CPT/HCPCS: 73560; 73620; 96372; 99283; J1885

== ENCOUNTER 2019-04-08 10:14 | Outpatient (CLI) | payer MEDICARE ==
--- NOTE | 2019-04-08 13:31 | Mammography Report ---
BILATERAL DIGITAL SCREENING MAMMOGRAM WITH CAD INDICATION: Routine screening mammography. TECHNIQUE: Digital bilateral 2D mammography was obtained in the craniocaudal and mediolateral obliq ue projections. This examination was interpreted with the benefit of Computer-Aided Detection analysi s. COMPARISON: 01/20/2017 FINDINGS: Breast Density: There are scattered areas of fibroglandular density. No mass, architectural distortion or suspicious calcifications. IMPRESSION:No mammographic evidence of malignancy. BI-RADS Category 1: Negative. No mammographic evidence of malignancy. Recommend routine screening m ammography in one year. A "normal" or negative report should not discourage follow up or biopsy of a clinically significant f inding. A written summary of these findings will be mailed to the patient. The patient will be entered into a mammography reporting system which will generate a reminder letter for the patient's next appointmen t at the appropriate interval. The [employer] recommends yearly mammograms starting at age 40 and continuing as l lisa as a woman is in good health. Breast MRI is recommended for women with an approximate 20-25% or greater lifetime risk of breast cancer, including women with a strong family history of breast or ova connor cancer or who have been treated for Hodgkin's disease. Signer Name: Jovon Mendoza MD Signed: 04/08/2019 1:26 PM Workstation Name: [id number]
== END 2019-04-08 10:15 | disposition home or self-care (01) ==
LOC: MAMMO 10:14
PROVIDERS: ATTEND Nurse Practitioner Family
DX: Z12.31 Encounter for screening mammogram for malignant neoplasm of breast (principal); E78.00 Pure hypercholesterolemia, unspecified; I10 Essential (primary) hypertension; J44.9 Chronic obstructive pulmonary disease, unspecified; E03.9 Hypothyroidism, unspecified; Z90.710 Acquired absence of both cervix and uterus
CPT/HCPCS: 77067

== ENCOUNTER 2019-07-11 16:06 | Emergency (ER) | payer MEDICARE ==
--- NOTE | 2019-07-11 16:34 | Event Note ---
ED Screening Note ED Screening Note: hanging some curtains and fell off small ladder two days ago c/o left sided rib pain and left sided chest pain c/o left knee pain unsure of last tetanus This initial assessment/diagnostic orders/clinical plan/treatment(s) is/are subject to change based on patients health status, clinical progression and re- assessment by fellow clinical providers in the ED. Further treatment and workup at subsequent clinical providers discretion. Patient/guardian urged not to elope from the ED as their condition may be serious if not clinically assessed and managed. Initial orders include: XR of the left knee, XR of the left chest
--- NOTE | 2019-07-11 17:19 | XRay Report ---
LEFT RIBS PLUS CHEST 6 VIEWS INDICATION / CLINICAL INFORMATION: left rib and chest pain s/p fall COMPARISON: None available. FINDINGS: BONES and JOINT(S): No acute fracture or subluxation. Degenerative changes are seen throughout the sp ine. SOFT TISSUES/CHEST: No significant abnormality. ADDITIONAL FINDINGS: None. IMPRESSION: No acute abnormality of the left ribs or chest. Signer Name: Zak Schaffer MD Signed: 07/11/2019 5:14 PM Workstation Name: [id number]
--- NOTE | 2019-07-11 17:20 | XRay Report ---
LEFT KNEE 3 VIEWS INDICATION / CLINICAL INFORMATION: left knee pain, s/p fall COMPARISON: None available. FINDINGS: BONES and JOINT(S): No acute fracture or subluxation. There is mild tricompartmental osteoarthritis w ith chondrocalcinosis. SOFT TISSUES: No acute abnormality is seen. Mild atherosclerosis is noted along the superficial femor al and popliteal arteries. ADDITIONAL FINDINGS: None. IMPRESSION: 1. No acute abnormality of the left knee. 2. Additional findings as above. Signer Name: Zak Schaffer MD Signed: 07/11/2019 5:15 PM Workstation Name: [id number]
--- NOTE | 2019-07-11 18:48 | Cat Scan Report ---
CT HEAD WITHOUT CONTRAST INDICATION / CLINICAL INFORMATION: fall, hit head. TECHNIQUE: All CT scans at this location are performed using CT dose reduction for ALARA by means of automated e xposure control. COMPARISON: CT head 12/09/2017 and 06/05/2014. FINDINGS: HEMORRHAGE: No evidence of intracranial hemorrhage or extra-axial fluid collection. EXTRA-AXIAL SPACES: Cortical sulci, sylvian fissures and basilar cisterns have an unremarkable appear ance. VENTRICULAR SYSTEM: The ventricular system is of normal size and configuration. CEREBRAL PARENCHYMA: No areas of abnormal brain parenchymal attenuation are identified. There is no i ndication of recent infarction. On study dated 10/11/2017 there was a 1 cm area of increased attenuati on in the medial aspect of the left temporal lobe. This is no longer identified. MIDLINE SHIFT OR HERNIATION: There is no mass effect. CEREBELLUM / BRAINSTEM: Brainstem and cerebellum have an unremarkable appearance. INTRACRANIAL VESSELS: Calcified atherosclerotic plaque is seen along the course of the cavernous segm ents of both internal carotid arteries. ORBITS: visualized portions of the orbits have an unremarkable appearance. SOFT TISSUES of HEAD: No significant abnormality. CALVARIUM: Evaluation of bone windows reveals no abnormalities. PARANASAL SINUSES / MASTOID AIR CELLS: Paranasal sinuses are free from inflammatory mucosal disease. Mastoid air cells are normally pneumatized. ADDITIONAL FINDINGS: None. IMPRESSION: 1. No abnormalities are identified on head CT without contrast. Signer Name: Venkat Almazan MD Signed: 07/11/2019 6:44 PM Workstation Name: [id number]
--- NOTE | 2019-07-11 19:12 | Emergency Department Report ---
ED Fall HPI - General Chief Complaint: Fall Stated Complaint: LT SIDE INJURY Time Seen by Provider: 07/11/19 16:32 Source: patient Mode of arrival: Ambulatory - History of Present Illness Initial Comments: Mrs. Ahmadi is a 68 year old female with history of COPD, chronic kidney disease, diabetes mellitus, arthritis, hypertension, fibromyalgia who presents after fall 2 days ago. The fall occurred at home while she was standing on arm of the couch trying to arrange curtains. She has a deep bruise at her left lower rib cage. She has lower rib cage pain and left knee pain. She's ambulatory. She did not have any loss of consciousness. She has a superficial cut in the left lower rib cage and upper abdomen. She hit her head but she did not have any loss of consciousness. She fell from approximately 3 feet height. 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 (2) Place Fall Occurred: home Loss of Consciousness: none Prolonged Down Time?: no Symptoms Prior to Fall: none Location: other (left rib cage left knee) Severity: moderate Quality: dull Context: tripped/slipped Associated Symptoms: denies - Related Data Home Medications Medication Instructions Recorded Confirmed Last Taken hydroCHLOROthiazide [HCTZ] 25 mg PO QDAY 04/06/15 06/02/17 04/28/15 Baclofen 1 tab PO BID 05/30/17 06/02/17 06/01/17 21:00 DULoxetine 1 cap PO BID 05/30/17 06/02/17 06/01/17 21:00 Dicyclomine 1 tab PO BID 05/30/17 06/02/17 06/01/17 21:00 Gabapentin 1 tab PO BID 05/30/17 06/02/17 06/01/17 21:00 Levothyroxine 1 tab PO DAILY 05/30/17 06/02/17 06/02/17 06:00 Ondansetron 1 tab PO DAILY 05/30/17 06/02/17 06/01/17 21:00 Simvastatin 1 tab PO DAILY 05/30/17 06/02/17 06/01/17 21:00 amLODIPine 1 tab PO DAILY 05/30/17 06/02/17 06/02/17 06:00 metFORMIN 1 tab PO BID 05/30/17 06/02/17 06/01/17 21:00 Cyclobenzaprine HCl [Flexeril 5 MG 5 mg PO BID PRN 06/02/17 06/02/17 06/01/17 21:00 TAB] Metoprolol [Lopressor TAB] 50 mg PO DAILY 06/02/17 06/02/17 06/02/17 06:00 Previous Rx's Medication Instructions Recorded Last Taken Type Famotidine [Pepcid] 20 mg PO DAILY #30 tablet 06/05/14 06/01/17 21:00 Rx cloNIDine [Catapres] 0.2 mg PO QHS #30 tablet 06/05/14 06/01/17 21:00 Rx Promethazine [Phenergan] 25 mg PO Q6H PRN #20 tablet 08/05/14 06/01/17 09:00 Rx ALBUTEROL Inhaler (OR & NICU) 2 puff IH QID PRN #1 inhalation 04/29/15 Unknown Rx [ProAir HFA Inhaler] oxyCODONE /ACETAMINOPHEN [Percocet 1 tab PO Q6HR PRN #10 tablet 04/29/15 06/01/17 21:00 Rx 5/325 mg] Acetaminophen [Tylenol Arthritis] 650 mg PO Q6HR PRN #30 tablet.er 10/25/17 Unknown Rx Ibuprofen [Motrin] 600 mg PO Q8H PRN #30 tablet 10/25/17 Unknown Rx HYDROcodone/APAP 5-325 [Trezevant 1 each PO Q6HR PRN #10 tablet 07/11/19 Unknown Rx 5/325] Allergies Allergy/AdvReac Type Severity Reaction Status Date / Time No Known Allergies Allergy Verified 01/13/15 08:30 ED Review of Systems ROS: Stated complaint: LT SIDE INJURY Other details as noted in HPI Constitutional: denies: fever, malaise Respiratory: denies: cough Cardiovascular: denies: chest pain Gastrointestinal: denies: abdominal pain, nausea, vomiting Musculoskeletal: myalgia Skin: lesions ED Past Medical Hx - Past Medical History Previous Medical History?: Yes Hx Hypertension: Yes Hx Heart Attack/AMI: No Hx Diabetes: Yes Hx Renal Disease: No (kidney function better after switching to a diff BP med) Hx Arthritis: Yes Hx Seizures: No Hx Kidney Stones: Yes Hx COPD: Yes (MILD) Additional medical history: emphysema, ovarian and hepatic cysts. THYROID, fibromyalgia. hemorrhagic contusion - Surgical History Past Surgical History?: Yes Hx Cholecystectomy: Yes Additional Surgical History: Kidney stone surgery, hysterectomy, injections in back - Social History Smoking Status: Never Smoker Substance Use Type: None - Medications Home Medications: Home Medications Medication Instructions Recorded Confirmed Last Taken Type Famotidine [Pepcid] 20 mg PO DAILY #30 tablet 06/05/14 06/02/17 06/01/17 21:00 Rx cloNIDine [Catapres] 0.2 mg PO QHS #30 tablet 06/05/14 06/02/17 06/01/17 21:00 Rx Promethazine [Phenergan] 25 mg PO Q6H PRN #20 tablet 08/05/14 06/02/17 06/01/17 09:00 Rx hydroCHLOROthiazide [HCTZ] 25 mg PO QDAY 04/06/15 06/02/17 04/28/15 History ALBUTEROL Inhaler (OR & NICU) 2 puff IH QID PRN #1 inhalation 04/29/15 06/02/17 Unknown Rx [ProAir HFA Inhaler] oxyCODONE /ACETAMINOPHEN [Percocet 1 tab PO Q6HR PRN #10 tablet 04/29/15 06/02/17 06/01/17 21:00 Rx 5/325 mg] Baclofen 1 tab PO BID 05/30/17 06/02/17 06/01/17 21:00 History DULoxetine 1 cap PO BID 05/30/17 06/02/17 06/01/17 21:00 History Dicyclomine 1 tab PO BID 05/30/17 06/02/17 06/01/17 21:00 History Gabapentin 1 tab PO BID 05/30/17 06/02/17 06/01/17 21:00 History Levothyroxine 1 tab PO DAILY 05/30/17 06/02/17 06/02/17 06:00 History Ondansetron 1 tab PO DAILY 05/30/17 06/02/17 06/01/17 21:00 History Simvastatin 1 tab PO DAILY 05/30/17 06/02/17 06/01/17 21:00 History amLODIPine 1 tab PO DAILY 05/30/17 06/02/17 06/02/17 06:00 History metFORMIN 1 tab PO BID 05/30/17 06/02/17 06/01/17 21:00 History Cyclobenzaprine HCl [Flexeril 5 MG 5 mg PO BID PRN 06/02/17 06/02/17 06/01/17 21:00 History TAB] Metoprolol [Lopressor TAB] 50 mg PO DAILY 06/02/17 06/02/17 06/02/17 06:00 History Acetaminophen [Tylenol Arthritis] 650 mg PO Q6HR PRN #30 tablet.er 10/25/17 Unknown Rx Ibuprofen [Motrin] 600 mg PO Q8H PRN #30 tablet 10/25/17 Unknown Rx HYDROcodone/APAP 5-325 [Trezevant 1 each PO Q6HR PRN #10 tablet 07/11/19 Unknown Rx 5/325] ED Physical Exam - General Limitations: No Limitations General appearance: alert, in no apparent distress - Head Head exam: Present: atraumatic, normocephalic - Eye Eye exam: Present: normal appearance - ENT ENT exam: Present: mucous membranes moist - Neck Neck exam: Present: normal inspection, full ROM - Respiratory Respiratory exam: Present: normal lung sounds bilaterally, chest wall tenderness, other (left lower rib cage deep bruise superficial excoriation ). Absent: respiratory distress, wheezes, rales, rhonchi - Cardiovascular Cardiovascular Exam: Present: regular rate, normal rhythm, normal heart sounds. Absent: systolic murmur, diastolic murmur, rubs, gallop - GI/Abdominal GI/Abdominal exam: Present: soft. Absent: distended, tenderness, guarding, rebound - Extremities Exam Extremities exam: Present: normal inspection, full ROM, normal capillary refill. Absent: tenderness, pedal edema - Back Exam Back exam: Present: normal inspection - Neurological Exam Neurological exam: Present: alert, oriented X3 - Psychiatric Psychiatric exam: Present: normal affect, normal mood - Skin Skin exam: Present: warm, dry, intact, normal color. Absent: rash ED Course Vital Signs 07/11/19 16:26 Temperature 98.5 F Pulse Rate 72 Respiratory 16 Rate Blood Pressure 164/91 O2 Sat by Pulse 99 Oximetry ED Medical Decision Making - Radiology Data Radiology results: report reviewed CT head without acute process, left knee radiographs without acute injury chest rib series radiographs: No acute process - Medical Decision Making ms. Ahmadi has mild left knee contusion and rib contusion on left. Prescribed Trezevant. Critical care attestation.: If time is entered above; I have spent that time in minutes in the direct care of this critically ill patient, excluding procedure time. ED Disposition Clinical Impression: Fall, Contusion of rib on left side, Contusion of left knee Disposition: TO HOME OR SELFCARE Is pt being admited?: No Does the pt Need Aspirin: No Condition: Stable Instructions: Fall Prevention (ED) Prescriptions: HYDROcodone/APAP 5-325 [Trezevant 5/325] 1 each PO Q6HR PRN #10 tablet PRN Reason: Pain
[2019-07-11] MEDS ORDERED: HYDROcodone/ACETAMINOPHEN 5-325 MG TAB PO ONE (19:14)
[2019-07-11 20:14] VITALS: BP 161/90
== END 2019-07-11 19:30 | disposition home or self-care (01) ==
LOC: ED 16:06
DX: S80.02XA Contusion of left knee, initial encounter (principal); S20.212A Contusion of left front wall of thorax, initial encounter; I10 Essential (primary) hypertension; R51 Headache; E11.9 Type 2 diabetes mellitus without complications; M19.90 Unspecified osteoarthritis, unspecified site; J44.1 Chronic obstructive pulmonary disease with (acute) exacerbation; Z90.49 Acquired absence of other specified parts of digestive tract; Z79.899 Other long term (current) drug therapy; W19.XXXA Unspecified fall, initial encounter; Y93.89 Activity, other specified; Y92.89 Other specified places as the place of occurrence of the external cause; Y99.8 Other external cause status
CPT/HCPCS: 70450

== ENCOUNTER 2019-08-14 00:03 | Emergency (ER) | payer MEDICARE ==
[2019-08-14] MEDS ORDERED: methylPREDNISolone Sod Succinate 125 MG/2 ML INJ IM ONE (07:25)
[2019-08-14] MEDS ORDERED: ACETAMINOPHEN 325 MG TAB PO ONE (07:26)
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
[2019-08-14 09:03] VITALS: BP 122/76
== END 2019-08-14 09:02 | disposition home or self-care (01) ==
LOC: ED 00:03
DX: S39.012A Strain of muscle, fascia and tendon of lower back, initial encounter (principal); T36.0X5A Adverse effect of penicillins, initial encounter; V49.49XA Driver injured in collision with other motor vehicles in traffic accident, initial encounter; Y93.89 Activity, other specified; Y92.488 Other paved roadways as the place of occurrence of the external cause; Y99.8 Other external cause status
CPT/HCPCS: 72100; 96372; 99283; J2930